=== PATIENT | male | born 1985 | race Caucasian/White ===

== ENCOUNTER 2023-05-20 18:05 | Emergency (ER) | payer MEDICAID ==
[~2023-05-20] VITALS: Ht 170.2 cm; Wt 77.1 kg
[2023-05-20 18:20] VITALS: BP_SYST 117; PULSE 82; RESP 20; TEMP 97.8; O2SAT 99
--- NOTE | 2023-05-20 18:20 | NUR ---
Patient triaged and placed in waiting room. VSS and patient appears in no acute distress at this time. Accompanied by SELF, awaiting available bed, and MD notified of need for MSE.
--- NOTE | 2023-05-20 19:57 | NUR ---
ER Dr. VERDE at bedside examining patient.
[2023-05-20] MEDS ORDERED: IBUP-1971 PO (20:08)
[2023-05-20 20:40] VITALS: BP_SYST 119; PULSE 79; RESP 20; O2SAT 99
--- NOTE | 2023-05-20 20:40 | NUR ---
Patient given written and verbal discharge instructions and verbalizes understanding. ER DR VERDE discussed with patient the results and treatment provided. Patient in stable condition. ID arm band removed. Rx of MOTRIN given. Patient educated on pain management and to follow up with PMD. Pain Scale 3/10. Opportunity for questions provided and answered. Medication side effect fact sheet provided.
== END 2023-05-20 20:40 | disposition home or self-care (01) ==
LOC: SED 18:05
DX: M25.531 Pain in right wrist (principal); R20.2 Paresthesia of skin; Z79.899 Other long term (current) drug therapy
CPT/HCPCS: 99282